=== PATIENT | female | born 1985 | race African-American/Black ===

== ENCOUNTER 2016-10-27 19:26 | Emergency (ER) | payer OTHER ==
[~2016-10-27] VITALS: Ht 165.1 cm; Wt 61.0 kg
[2016-10-27 19:27] VITALS: BP 120/73; PULSE 94; RESP 16; TEMP 99.3; O2SAT 98
[2016-10-27 20:05] VITALS: RESP 19; O2SAT 98
[2016-10-27] MEDS ORDERED: KETOROLAC TROMETHAMINE 30 MG/ML (IVP) VIAL IV PUSH ONE (20:15)
[2016-10-27] MEDS ORDERED: SODIUM CHLORIDE 0.9% FLUSH 10 ML FLUSH IVF PRN (20:15)
[2016-10-27] MEDS ORDERED: SODIUM CHLOR 0.9% 1000 ML INJ 1,000 ML IV ONE (20:15)
--- NOTE | 2016-10-27 20:33 | RADRPT ---
EXAM DATE/TIME: 10/27/2016 20:17 [facility] COMPARISON: No previous studies available for comparison. INDICATIONS : Chest pain on left side. MEDICAL HISTORY : None. SURGICAL HISTORY : None. ENCOUNTER: Initial ACUITY: 1 day PAIN SCORE: 0/10 LOCATION: Bilateral chest FINDINGS: A single view of the chest demonstrates the lungs to be symmetrically aerated without evidence of mas s, infiltrate or effusion. The cardiomediastinal contours are unremarkable. Osseous structures are intact. CONCLUSION: No acute disease. Olu Christy MD on October 27, 2016 at 20:31 Board Certified Radiologist. This report was verified electronically.
[2016-10-27 20:51] LABS: AUTOMATED NEUTROPHIL # 6.9 TH/MM3 (1.8-7.7); BASOPHIL # 0.1 TH/MM3 (0-0.2); BASOPHIL % 0.5 % (0.0-2.0); EOSINOPHIL # 0.3 TH/MM3 (0-0.4); EOSINOPHIL % 2.6 % (0.0-4.0); HEMATOCRIT 41.8 % (35.0-46.0); HEMO FLAGS DIFF FINAL; LYMPH % 19.2 % (9.0-44.0); LYMPHOCYTE # 1.8 TH/MM3 (1.0-4.8); MEAN CELL VOLUME 97.1 FL (80.0-100.0); MEAN CORPUSCULAR HEMOGLOBIN 33.5 PG (27.0-34.0); MEAN CORPUSCULAR HGB CONC 34.5 % (32.0-36.0); MONO % 5.8 % (0.0-8.0); NEUT % 71.9 % (16.0-70.0); PLATELET COUNT 235 TH/MM3 (150-450); RED BLOOD COUNT 4.31 MIL/MM3 (4.00-5.30); RED CELL DISTRIBUTION WIDTH 13.3 % (11.6-17.2); WHITE BLOOD COUNT 9.6 TH/MM3 (4.0-11.0)
[2016-10-27 20:59] LABS: APTT (PATIENT) 27.8 SEC (24.3-30.1); PROTHROMBIN TIME - PATIENT 10.7 SEC (9.8-11.6)
[2016-10-27] MEDS ORDERED: IOHEXOL 350 MG/ML 10 ML VIAL (for RAD DIAG) IVCONTRAST ONE (21:00)
--- NOTE | 2016-10-27 21:03 | PD ---
HPI Chief Complaint: Chest Pain Time Seen by Provider: 19:58 Travel History International Travel<30 days: No Contact w/Intl Traveler<30days: No Traveled to known affect area: No History of Present Illness HPI Patient is a 31-year-old female who presents to emergency room with complaints of chest pain. Patient reports that she has been having pleuritic chest pain for the past month, reports that the chest pain has been worse over the past few days. Patient reports that pain is sharp and stabbing in nature. Reports that she has breast implants and is concerned that "something is wrong with my implants." Patient denies history of ACS, hypertension, hyperlipidemia. Patient with no fevers or chills, no recent travels. PFSH Past Medical History Medical History: Denies Significant Hx Immunizations Current: Yes ?: Not LMP: 09/25/16 Past Surgical History Other Surgery: Yes (BREAST AUGMENTATION) Social History Alcohol Use: Yes Tobacco Use: Yes Substance Use: No Allergies-Medications (Allergen,Severity, Reaction): Coded Allergies: No Known Allergies (Unverified , 10/27/16) Review of Systems General / Constitutional: No: Fever Eyes: No: Visual changes HENT: No: Headaches Cardiovascular: Positive: Chest Pain or Discomfort, Palpitations, No: Tachycardia, Diaphoresis Respiratory: Positive: Shortness of Breath, No: Cough Gastrointestinal: No: Abdominal Pain Genitourinary: No: Dysuria Musculoskeletal: No: Pain Skin: No Rash Neurologic: No: Weakness Psychiatric: No: Depression Endocrine: No: Polydipsia Hematologic/Lymphatic: No: Easy Bruising Physical Exam Narrative GENERAL: NAD SKIN: Focused skin assessment warm/dry. HEAD: Atraumatic. Normocephalic. EYES: Pupils equal and round. No scleral icterus. No injection or drainage. ENT: No nasal bleeding or discharge. Mucous membranes pink and moist. NECK: Trachea midline. No JVD. CARDIOVASCULAR: Regular rate and rhythm. No murmur appreciated. RESPIRATORY: No accessory muscle use. Clear to auscultation. Breath sounds equal bilaterally. GASTROINTESTINAL: Abdomen soft, non-tender, nondistended. Hepatic and splenic margins not palpable. MUSCULOSKELETAL: No obvious deformities. No clubbing. No cyanosis. No edema. NEUROLOGICAL: Awake and alert. No obvious cranial nerve deficits. Motor grossly within normal limits. Normal speech. PSYCHIATRIC: Appropriate mood and affect; insight and judgment normal. Data Data Last Documented VS Vital Signs Date Time Temp Pulse Resp B/P (MAP) Pulse Ox O2 Delivery O2 Flow Rate FiO2 10/27/16 20:05 19 98 Room Air 10/27/16 20:05 10/27/16 19:27 99.3 94 Orders Orders Electrocardiogram (10/27/16 ) Ckmb (Isoenzyme) Profile (10/27/16 20:09) Complete Blood Count With Diff (10/27/16 20:09) Comprehensive Metabolic Panel (10/27/16 20:09) Prothrombin Time / Inr (Pt) (10/27/16 20:09) Act Partial Throm Time (Ptt) (10/27/16 20:09) Troponin I (10/27/16 20:09) Chest, Single Ap (10/27/16 20:09) Ecg Monitoring (10/27/16 20:09) Iv Access Insert/Monitor (10/27/16 20:09) Oximetry (10/27/16 20:09) Sodium Chloride 0.9% Flush (Ns Flush) (10/27/16 20:15) Ct Pulmonary Angiogram (10/27/16 20:09) Ed Urine Pregnancytest Poc (10/27/16 20:09) Sodium Chlor 0.9% 1000 Ml Inj (Ns 1000 M (10/27/16 20:15) Ketorolac Inj (Toradol Inj) (10/27/16 20:15) Iohexol 350 Inj (Omnipaque 350 Inj) (10/27/16 21:00) Labs Laboratory Tests Test 10/27/16 20:25 White Blood Count 9.6 TH/MM3 Red Blood Count 4.31 MIL/MM3 Hemoglobin 14.4 GM/DL Hematocrit 41.8 % Mean Corpuscular Volume 97.1 FL Mean Corpuscular Hemoglobin 33.5 PG Mean Corpuscular Hemoglobin Concent 34.5 % Red Cell Distribution Width 13.3 % Platelet Count 235 TH/MM3 Mean Platelet Volume 9.3 FL Neutrophils (%) (Auto) 71.9 % Lymphocytes (%) (Auto) 19.2 % Monocytes (%) (Auto) 5.8 % Eosinophils (%) (Auto) 2.6 % Basophils (%) (Auto) 0.5 % Neutrophils # (Auto) 6.9 TH/MM3 Lymphocytes # (Auto) 1.8 TH/MM3 Monocytes # (Auto) 0.6 TH/MM3 Eosinophils # (Auto) 0.3 TH/MM3 Basophils # (Auto) 0.1 TH/MM3 CBC Comment DIFF FINAL Differential Comment Prothrombin Time 10.7 SEC Prothromb Time International Ratio 1.0 RATIO Activated Partial Thromboplast Time 27.8 SEC Blood Urea Nitrogen 6 MG/DL Creatinine 0.79 MG/DL Random Glucose 82 MG/DL Total Protein 7.7 GM/DL Albumin 4.2 GM/DL Calcium Level 9.1 MG/DL Alkaline Phosphatase 45 U/L Aspartate Amino Transf (AST/SGOT) 16 U/L Alanine Aminotransferase (ALT/SGPT) 24 U/L Total Bilirubin 0.6 MG/DL Sodium Level 135 MEQ/L Potassium Level 3.8 MEQ/L Chloride Level 104 MEQ/L Carbon Dioxide Level 24.7 MEQ/L Anion Gap 6 MEQ/L Estimat Glomerular Filtration Rate 85 ML/MIN Total Creatine Kinase 86 U/L Troponin I LESS THAN 0.02 NG/ML MDM Medical Decision Making Medical Screen Exam Complete: Yes Emergency Medical Condition: Yes Interpretation(s) EKG at 212: NSR at 72bpm, qt/qtc: 372/397, no acute st or t wave changes Vital Signs Date Time Temp Pulse Resp B/P (MAP) Pulse Ox O2 Delivery O2 Flow Rate FiO2 10/27/16 20:05 19 98 Room Air 10/27/16 20:05 19 98 Room Air 10/27/16 19:27 99.3 94 16 120/73 (89) 98 Room Air Laboratory Tests Test 10/27/16 20:25 White Blood Count 9.6 TH/MM3 (4.0-11.0) Red Blood Count 4.31 MIL/MM3 (4.00-5.30) Hemoglobin 14.4 GM/DL (11.6-15.3) Hematocrit 41.8 % (35.0-46.0) Mean Corpuscular Volume 97.1 FL (80.0-100.0) Mean Corpuscular Hemoglobin 33.5 PG (27.0-34.0) Mean Corpuscular Hemoglobin Concent 34.5 % (32.0-36.0) Red Cell Distribution Width 13.3 % (11.6-17.2) Platelet Count 235 TH/MM3 (150-450) Mean Platelet Volume 9.3 FL (7.0-11.0) Neutrophils (%) (Auto) 71.9 % (16.0-70.0) Lymphocytes (%) (Auto) 19.2 % (9.0-44.0) Monocytes (%) (Auto) 5.8 % (0.0-8.0) Eosinophils (%) (Auto) 2.6 % (0.0-4.0) Basophils (%) (Auto) 0.5 % (0.0-2.0) Neutrophils # (Auto) 6.9 TH/MM3 (1.8-7.7) Lymphocytes # (Auto) 1.8 TH/MM3 (1.0-4.8) Monocytes # (Auto) 0.6 TH/MM3 (0-0.9) Eosinophils # (Auto) 0.3 TH/MM3 (0-0.4) Basophils # (Auto) 0.1 TH/MM3 (0-0.2) CBC Comment DIFF FINAL Differential Comment Prothrombin Time 10.7 SEC (9.8-11.6) Prothromb Time International Ratio 1.0 RATIO Activated Partial Thromboplast Time 27.8 SEC (24.3-30.1) Blood Urea Nitrogen 6 MG/DL (7-18) Creatinine 0.79 MG/DL (0.50-1.00) Random Glucose 82 MG/DL (74-106) Total Protein 7.7 GM/DL (6.4-8.2) Albumin 4.2 GM/DL (3.4-5.0) Calcium Level 9.1 MG/DL (8.5-10.1) Alkaline Phosphatase 45 U/L (45-117) Aspartate Amino Transf (AST/SGOT) 16 U/L (15-37) Alanine Aminotransferase (ALT/SGPT) 24 U/L (10-53) Total Bilirubin 0.6 MG/DL (0.2-1.0) Sodium Level 135 MEQ/L (136-145) Potassium Level 3.8 MEQ/L (3.5-5.1) Chloride Level 104 MEQ/L (98-107) Carbon Dioxide Level 24.7 MEQ/L (21.0-32.0) Anion Gap 6 MEQ/L (5-15) Estimat Glomerular Filtration Rate 85 ML/MIN (>89) Total Creatine Kinase 86 U/L (26-192) Troponin I LESS THAN 0.02 NG/ML Last Impressions Chest X-Ray 10/27/162008 Signed Impressions: Service Date/Time: Thursday, October 27, 2016 20:17 - CONCLUSION: No acute disease. Olu Christy MD CT Angiography 10/27/162008 Signed Impressions: Service Date/Time: Thursday, October 27, 2016 20:55 - CONCLUSION: No acute disease. Olu Christy MD Differential Diagnosis Differential includes ACS, arrhythmia, PE, pneumothorax, electrolyte abnormality Narrative Course Patient is a 31-year-old female who presents to emergency room with complaints of chest pain. Chest pain is sharp and stabbing in nature, reports that it has been intermittent for the past month. Reports pain worse over the past few days. Patient was placed on a preschool principal. Labs as well PE study ordered. IVF as well as toradol ordered. Diagnosis Primary Impression: Costochondritis, acute Patient Instructions: General Instructions Additional Instructions: Please provide patient with a copy of her studies at discharge Please follow up with your primary care doctor Please take Tylenol or Motrin for pain Return to the emergency room if symptoms worsen or progress Return to the emergency room as needed Disposition: 01 DISCHARGE HOME Condition: Stable Shelli Wood DO Oct 27, 2016 21:03
[2016-10-27 21:06] LABS: ALT (GPT) 24 U/L (10-53); ANION GAP 6 MEQ/L (5-15); AST (GOT) 16 U/L (15-37); BICARBONATE 24.7 MEQ/L (21.0-32.0); CHLORIDE 104 MEQ/L (98-107); GLOMERULAR FILTRATION RATE 85 ML/MIN (>89); POTASSIUM 3.8 MEQ/L (3.5-5.1); SODIUM (NA) 135 MEQ/L (136-145)
--- NOTE | 2016-10-27 21:10 | RADRPT ---
EXAM DATE/TIME: 10/27/2016 20:55 [facility] COMPARISON: No previous studies available for comparison. INDICATIONS : Left side chest pain. IV CONTRAST: 75 cc Omnipaque 350 (iohexol) IV RADIATION DOSE: 22.87 CTDIvol (mGy) MEDICAL HISTORY : None SURGICAL HISTORY : None. ENCOUNTER: Initial ACUITY: 1 day PAIN SCALE: 9/10 LOCATION: chest TECHNIQUE: Volumetric scanning of the chest was performed using a pulmonary embolism protocol MIP images were re constructed. Using automated exposure control and adjustment of the mA and/or kV according to patien t size, radiation dose was kept as low as reasonably achievable to obtain optimal diagnostic quality images. DICOM format image data is available electronically for review and comparison. Follow-up recommendations for detected pulmonary nodules are based at a minimum on nodule size and pa tient risk factors according to Fleischner Society Guidelines. FINDINGS: PULMONARY ARTERIES: No filling defects are seen in the pulmonary arteries through the segmental level. LUNGS: There is no consolidation or pneumothorax . No concerning pulmonary nodule is visualized. PLEURAE: There is no pleural thickening or pleural effusion. MEDIASTINUM: There is good visualization of the great vessels of the middle mediastinum. No evidence of mediastin al or hilar adenopathy/mass. MUSCULOSKELETAL: Within normal limits for patient age. MISCELLANEOUS: The visualized upper abdominal organs demonstrate no acute abnormality. CONCLUSION: No acute disease. Olu Christy MD on October 27, 2016 at 21:04 Board Certified Radiologist. This report was verified electronically.
[2016-10-27 21:13] LABS: ALKALINE PHOSPHATASE 45 U/L (45-117); BLOOD UREA NITROGEN 6 MG/DL (7-18); TOTAL BILIRUBIN ADULT 0.6 MG/DL (0.2-1.0)
[2016-10-27 21:26] LABS: CREATINE KINASE 86 U/L (26-192)
--- NOTE | 2016-10-28 20:50 | EKG ---
Date Performed: 10/27/2016 Time Performed: 21:28:56 PTAGE: 31 years EKG: Sinus rhythm NORMAL ECG NO PREVIOUS TRACING DOCTOR: Omar Stout Interpretating Date/Time 10/28/2016 20:45:33
== END 2016-10-27 22:07 | disposition home or self-care (01) ==
LOC: NEPC 19:26
DX: M94.0 Chondrocostal junction syndrome [Tietze] (principal); Z72.0 Tobacco use
CPT/HCPCS: 71010; 71275; 80053; 82550; 84484; 84703; 85025; 85610; 85730; 93005; 96361; 96374; 99285; J1885; J7030; Q9967